=== PATIENT | male | born 1975 | race Caucasian/White ===

== ENCOUNTER 2020-01-25 22:55 | Observation (INO) | payer OTHER ==
[2020-01-26] MEDS ORDERED: Ondansetron PF 4 MG/2 ML Vial IVP PRN (01:09)
[2020-01-26] MEDS ORDERED: Ondansetron ODT 4 MG TAB SL PRN (01:09)
[2020-01-26 01:17] VITALS: BMI 19.2
[2020-01-26] MEDS: Piperacillin/Tazobactam 3.375 GM in Sodium Chloride 0.9% 100 ML IVPB SCH ×2 (01:41→08:25)
[2020-01-26] MEDS: Morphine 4 MG/ML VIAL SLOW IVP PRN ×2 (01:42→08:23)
[2020-01-26] MEDS: Sodium Chloride 0.9% 1,000 ML IV SCH ×2 (01:42→08:25)
[2020-01-26] MEDS ORDERED: Dextrose 50% Abboject 50 ML SYRINGE SLOW IVP PRN (02:11)
[2020-01-26] MEDS ORDERED: Dextrose 5% in Water 1,000 ML IV PRN (02:11)
[2020-01-26] MEDS ORDERED: HumaLOG 300 UNITS/3 ML VIAL SC PRN (02:16)
[2020-01-26] MEDS ORDERED: Insulin Glargine 15 UNITS in Pre-Filled Syringe 1 EACH SC SCH ×2 (02:45→21:00)
[2020-01-26] MEDS ORDERED: Bisacodyl 5 MG TAB PO PRN (02:53)
--- NOTE | 2020-01-26 04:39 | CON ---
DATE OF CONSULTATION: REASON FOR CONSULT: Medical management. CHIEF COMPLAINT: Rectal pain. HISTORY OF PRESENT ILLNESS: The patient is a 44-year-old male, who presented to the outside facility with two-day history of rectal pain worsening. He reports normal bowel movements. No prior history of fistula or hemorrhoids. No hematochezia or melena. No fever. He underwent a CT abdomen that showed a perirectal abscess. He was transferred here for admission to General Surgery. He also carries a diagnosis of type 1 diabetes diagnosed nine years ago, currently stable on the home regimen per the patient. REVIEW OF SYSTEMS: A 12-point review of systems was performed and the patient denied all those except for what is mentioned in HPI. PAST MEDICAL HISTORY: Type 1 diabetes. PAST SURGICAL HISTORY: None. MEDICATIONS: 1. Humalog sliding scale insulin. 2. Lantus 15 units subcu at bedtime. ALLERGIES: NONE. FAMILY HISTORY: Positive for diabetes in his grandmother and hypertension in his mom. No history of cancers. 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 He reports 3 to 4 liquor drinks with each setting and drinks on average four times a week. He denies tobacco and illicit drug use. He is not . PHYSICAL EXAMINATION: VITAL SIGNS: Temperature 98.7, pulse 94, respirations 18, O2 saturation 95% on room air, and blood pressure 168/94. GENERAL: The patient is in no acute distress. HEENT: Moist mucous membranes. No lymphadenopathy. No scleral icterus. HEART: Regular rate and rhythm. Does have a mild 3/6 systolic murmur that extending up to the left carotid. Distal pulses 2+ in bilateral lower extremities. LUNGS: Clear to auscultation bilaterally. No wheezing or increased work of breathing. ABDOMEN: Soft and nontender. Bowel sounds positive. No masses or hernias palpated. EXTREMITIES: No cyanosis or edema. NEURO: No focal deficits. SKIN: No rashes. PSYCH: Alert and oriented x3. PERTINENT LABS AND IMAGING: ABG that was done, which shows a pH of 7.4, pCO2 of 32, PaO2 of 77, and bicarb of 20.6. UA was performed and unremarkable. CBC with white blood cell count 11.7, otherwise normal. Hemoglobin 13.6, hematocrit 38.8, and platelets 324. CMP; sodium 130, potassium 4.4, bicarb 21, chloride 92, glucose 549, calcium 9.5, alkaline phosphatase 91, ALT 32, AST 30, T-bilirubin 0.7. CTA of the abdomen and pelvis showed a left perianal abscess measuring 3.7 x 2.6 x 2.2 cm and large colonic stool burden and also dysfunction in the urinary bladder as well as evidence of chronic pancreatitis with dilatation of the pancreatic duct without evidence of mass. Ductal dilation cannot be easily evaluated, they recommend MRCP. ASSESSMENT AND PLAN: 1. Perianal abscess. Management per primary team. Currently on Zosyn and n.p.o. for possible procedure tomorrow. NS at 150 per surgery recs. Morphine for pain control. Could be caused by chronic constipation. We will start him on a bowel regimen. 2. Type 1 diabetes. Continue home medications and sliding scale insulin. Initially, 549. Last sugar check was 243. 3. Heart murmur, new per patient and concern for aortic stenosis based off the exam. Echo is ordered for further evaluation. 4. Concern for alcohol abuse and will monitor ASE scores. No signs or symptoms of withdrawal or acute intoxication at this time. 5. Chronic pancreatitis suggested by a CT abdomen. They suggest magnetic resonance cholangiopancreatography, but likely this could be scheduled outpatient with acute infection. 6. Constipation with large stool burden on CT. The patient reports had a regular sized bowel movement since getting to the floor. Place on stool regimen with history and because the patient is receiving opioids for pain control. 7. Bladder Distension: patient denies dysuria, difficulty with urination. UA wnl. Plan for post void residual to evaluate for retention. Disposition, stable. Deep venous thrombosis prophylaxis. Sequential compression devices. Gastrointestinal prophylaxis, none. Thank you for the consult. We will continue to follow. Job ID: [id number] [facility]
[2020-01-26 05:24] LABS: Anion Gap 12 mmol/L (10-20); BUN (Urea Nitrogen) 4 mg/dL (8.9-20.6); Calc. Creatinine Clearance 143 mL/min (70-130); Calcium 7.9 mg/dL (7.8-10.44); Carbon Dioxide 23 mmol/L (22-29); Chloride 103 mmol/L (98-107); Estimated GFR-MDRD Greater than 90; Glucose 206 mg/dL (70-105); Potassium 3.3 mmol/L (3.5-5.1); Sodium 135 mmol/L (136-145)
[2020-01-26 05:45] LABS: Band 2 % (5-11); Eosinophils 1 % (0-10); Hemoglobin 11.6 g/dL (14.0-18.0); Lymphocytes 28 % (21-51); MDiff Complete? YES; Mean Corpuscular HGB CONC 34.1 g/dL (32.0-36.0); Mean Corpuscular Hemoglobin 33.3 pg (27.0-31.0); Mean Corpuscular Volume 97.6 fL (78.0-98.0); Mean Platelet Volume 7.5 fL (7.4-10.4); Monocytes 6 % (0-10); Neutrophil 63 % (42-75); Platelet Count 307 thou/uL (130-400); Platelet Morphology Comment Appears Adequate; RBC Distribution Width 11.6 % (11.5-14.5); RBC Morphology Normal; White Blood Cell (WBC) Count 10.9 thou/uL (4.8-10.8)
[2020-01-26] MEDS: HumaLOG 300 UNITS/3 ML VIAL SC PRN ×2 (05:54→17:08)
--- NOTE | 2020-01-26 07:44 | HP ---
CHIEF COMPLAINT: Painful mass of perirectal area. HISTORY OF PRESENT ILLNESS: This is a 44-year-old poorly-controlled diabetic male with 3-day history of perirectal abscess. It is not draining. No previous episodes. No fevers or chills. Last bowel movement was last night. PAST MEDICAL HISTORY: Diabetes. PAST SURGICAL HISTORY: None. MEDICATIONS: Insulin. ALLERGIES: NO KNOWN DRUG ALLERGIES. SOCIAL HISTORY: Single. 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 No tobacco. Social alcohol. FAMILY HISTORY: 1. Hypertension. 2. Diabetes. 3. Heart disease. PHYSICAL EXAMINATION: VITAL SIGNS: Temperature 98.6, pulse 76, blood pressure 136/74. GENERAL: Well-developed, well-nourished male, in no apparent distress. HEENT: Unremarkable. LUNGS: Clear. HEART: Regular rate and rhythm. : Perianal exam, he has a 5-cm tender fluctuant mass in the lower sacral area on the left side that extends into the gluteus. LABORATORY DATA: His white count is 10.9, H and H of 11 and 34, platelet count 307. His glucose is 206. Electrolytes otherwise okay. ASSESSMENT: Gluteal abscess. PLAN: I and D. CONSENT: I have discussed planned procedure as well as risk of bleeding, infection, injury to sphincter mechanism. He understands and gives informed consent. Job ID: [id number]
--- NOTE | 2020-01-26 08:10 | PDOC.EVN ---
Addendum - Attending - Attending Attestation Date/Time: 01/26/20 7908 I personally evaluated the patient and discussed the management with Dr. Alves. I agree with the History, Examination, Assessment and Plan documented in her consult note with any addition or exceptions noted below. Patient here for anthony-rectal abscess, admitted by General Surgery. Primary plan and pain mgmt per their recommendations. We are consulted for blood glucose control in the setting of patient described Type 1 DM. Insulin regimen not characteristic of that diagnosis. However, will continue to monitor and escalate insulin as needed. Also checking TTE for his systolic murmur. Further mgmt and dispo pending primary team and anticipate he will be stable for discharge whenever the primary team has completed their treatment plan.
[2020-01-26] MEDS: Docusate 100 MG CAP PO SCH ×2 (08:26→21:13)
[2020-01-26] MEDS ORDERED: Fentanyl 250 MCG/5 ML VIAL ONE (10:14)
[2020-01-26] MEDS ORDERED: Rocuronium Bromide 10 MG/ML (10ML VIAL) ONE (11:10)
[2020-01-26] MEDS ORDERED: Ondansetron PF 4 MG/2 ML Vial ONE (11:10)
[2020-01-26] MEDS ORDERED: Lidocaine 1% PF 5 ML VIAL ONE (11:10)
[2020-01-26] MEDS ORDERED: Glycopyrrolate 0.2 MG/ML 5 ML SYRINGE ONE (11:10)
[2020-01-26] MEDS ORDERED: PROPOFOL 200 MG/20 ML VIAL ONE (11:10)
[2020-01-26] MEDS ORDERED: Morphine 2 MG/ML SYRINGE SLOW IVP PRN (11:39)
[2020-01-26] MEDS ORDERED: HYDROcodone/Acetaminophen 7.5/325 mg Tablet PO PRN ×2 (11:39)
[2020-01-26] MEDS ORDERED: Morphine 4 MG/ML VIAL SLOW IVP PRN (11:39)
[2020-01-26] MEDS ORDERED: Ondansetron HCl/PF 4 MG/2 ML Vial IVP PRN (11:52)
[2020-01-26] MEDS ORDERED: Promethazine HCl 25 MG/ML VIAL IM PRN (11:52)
[2020-01-26] MEDS ORDERED: Promethazine HCl 25 MG/ML VIAL SLOW IVP PRN (11:52)
[2020-01-27 05:36] LABS: #Eosinphils 0.1 thou/uL (0.0-0.7); #Lymphocytes 1.1 thou/uL (1.20-3.40); #Monocytes 1.6 thou/uL (0.11-0.59); #Neutrophils 7.9 thou/uL (1.40-6.50); %Basophils 0.3 % (0.0-1.0); %Eosinophils 0.6 % (0.0-10.0); %Lymphocytes 10.6 % (21.0-51.0); %Monocytes 14.7 % (0.0-10.0); %Neutrophils 73.9 % (42.0-75.0); Hemoglobin 11.7 g/dL (14.0-18.0); Mean Corpuscular HGB CONC 33.5 g/dL (32.0-36.0); Mean Corpuscular Volume 98.5 fL (78.0-98.0); Mean Platelet Volume 7.3 fL (7.4-10.4); Platelet Count 350 thou/uL (130-400); RBC Distribution Width 11.6 % (11.5-14.5); Red Blood Cell (RBC) Count 3.54 mill/uL (4.70-6.10); White Blood Cell (WBC) Count 10.7 thou/uL (4.8-10.8)
[2020-01-27 05:50] LABS: Anion Gap 9 mmol/L (10-20); BUN (Urea Nitrogen) Less than 4 mg/dL (8.9-20.6); Calc. Creatinine Clearance 159 mL/min (70-130); Calcium 7.9 mg/dL (7.8-10.44); Carbon Dioxide 30 mmol/L (22-29); Chloride 102 mmol/L (98-107); Estimated GFR-MDRD Greater than 90; Glucose 100 mg/dL (70-105); Sodium 138 mmol/L (136-145)
[2020-01-27 05:55] LABS: Potassium 2.8 mmol/L (3.5-5.1)
--- NOTE | 2020-01-27 06:19 | OP ---
DATE OF PROCEDURE: 01/26/2020 PREOPERATIVE DIAGNOSIS: Left perirectal abscess. PROCEDURE PERFORMED: I and D of perirectal abscess. INDICATIONS: This is a 44-year-old diabetic male, who came to the emergency room with severe anal pain and swelling, found to have an abscess. FINDINGS: A 4-cm cavity in left perirectal wall extending into the gluteal region. DESCRIPTION OF PROCEDURE: After informed consent was obtained, the patient was taken to the operating room, given general endotracheal anesthesia. He was placed in the prone herman-knife position. The gluteal area was prepped and draped in usual fashion. An elliptical incision was performed releasing thick purulent fluid. This was sent for culture and sensitivity. The ellipse was excised. The cavity was dilated digitally and irrigated thoroughly with saline and then packed open with Betadine and gauze and is covered with sterile drape, sterile bandage. The patient tolerated the procedure well, transferred to Recovery in good condition. Sponge and needle count verified correct x2. Job ID: [id number]
[2020-01-27] MEDS ORDERED: Potassium Chloride 20 MEQ TAB PO SCH ×3 (06:30→17:00)
--- NOTE | 2020-01-27 07:07 | PDOC.FM ---
- Subjective Subjective: This is a consultation progress note Pt states that he is continuing to do well. He states he has been out of bed, passed a small BM, and is passing gas. He reports the kent catheter was just removed and he has not urinated yet. He denies tremors, agitation, palpitations , or hallucinations - Objective MAR Reviewed: Yes Vital Signs & Weight: Vital Signs (12 hours) Temp Pulse Resp BP Pulse Ox 01/27/20 03:25 98.4 F 79 16 114/71 99 01/26/20 23:21 98.7 F 86 14 127/74 97 01/26/20 19:28 98.8 F 88 14 123/80 95 Weight Weight 68.039 kg I&O: 01/26/20 01/27/20 01/28/20 06:59 06:59 06:59 Intake Total 750 900 Output Total 900 Balance 750 0 Result Diagrams: 01/27/20 04:50 01/27/20 04:50 Phys Exam - Physical Examination Constitutional: NAD HEENT: moist MMs Neck: no JVD, full ROM Respiratory: no wheezing, clear to auscultation bilateral Cardiovascular: RRR, no significant murmur Gastrointestinal: soft, non-tender, no distention Musculoskeletal: no edema, pulses present Neurological: normal sensation, moves all 4 limbs Psychiatric: A&O x 3 Deviation from normal: abscess is covered, dressings appear dry and intact Dx/Plan (1) Perianal abscess Code(s): K61.0 - ANAL ABSCESS Status: Acute (2) DM type 1 (diabetes mellitus, type 1) Status: Acute - Plan Plan: Perianal abscess POD 1 I&D -Management per primary team DM1 -Continue home medications -Fasting sugars are appropriate, will monitor today -Discussed wit the patient the importance of tight control of BG for wound healing New heart murmur -Pending Echocardiogram Alcohol abuse -Asymptomatic for withdraw, ASE protocol Hypokalemia -S/P oral replacement, will monitor with BMPs -Magnesium appropriate Chronic pancreatitis per CT -Likely outpt Constipation -Bowel regimen in place Bladder distension -Urology consulted, we will see how he urinates on his own today Addendum - Attending - Attending Attestation Date/Time: 01/27/201946 I personally evaluated the patient and discussed the management with Dr. Carmona I agree with the History, Examination, Assessment and Plan documented above with any addition or exceptions noted below- Patient without complaints. Afebrile VSS A/P: 1) Perirectal abscess- s/p I&D- plans as per surgery; stable for discharge. 2) Type 1 DM- BG improved; continue current abx. 3) Urinary retention- voiding trial today. D/c home if able to void.
[2020-01-27] MEDS: Docusate 100 MG CAP PO SCH (07:49)
--- NOTE | 2020-01-27 08:52 | CON ---
DATE OF CONSULTATION: 01/26/2020 REASON FOR CONSULTATION: Urinary retention. HISTORY OF PRESENT ILLNESS: This is a 44-year-old male with diabetes, currently admitted with gluteal abscess. He had not voided throughout the entire morning with a postvoid residual above 500 just prior to being taken down for surgery earlier today. The catheter was placed at the beginning of his procedure, and I was consulted to manage the catheter and urinary retention. In speaking with him now, he has no prior history of urinary symptoms, urinary tract infections, retention, urologic surgery. He has never seen a urologist. No history of gross hematuria. He currently reports that the catheter is not bothering him. Denies suprapubic pain, flank pain, nausea, or vomiting. He denies fevers or chills. PAST MEDICAL HISTORY: Diabetes. PAST SURGICAL HISTORY: None. MEDICATIONS: Insulin. ALLERGIES: NO KNOWN DRUG ALLERGIES. SOCIAL HISTORY: Single. No substance abuse. FAMILY HISTORY: Reviewed. Negative for urologic malignancy. REVIEW OF SYSTEMS: Ten-point review of systems performed, negative except as mentioned in my HPI. PHYSICAL EXAMINATION: VITAL SIGNS: Afebrile, vitals stable. Urine output has not been recorded. GENERAL: No acute distress, conversant. HEAD: Normocephalic and atraumatic. Eyes; extraocular movements intact. Sclerae nonicteric. NECK: Supple. Trachea midline. LUNGS: Breathing unlabored. Symmetric chest expansion. HEART: Regular rate and rhythm. ABDOMEN: Soft, nontender, nondistended. No suprapubic tenderness. No flank tenderness. : Normal phallus and testicles with Zhang catheter in good position. Draining clear urine. EXTREMITIES: Without clubbing, cyanosis, or edema. SKIN: Warm and dry. NEUROLOGIC: Alert and oriented x3. PSYCHIATRIC: Normal mood and affect. LABORATORY DATA: Reviewed. White count 10.9. Creatinine 0.62. ASSESSMENT AND PLAN: Urinary retention. Zhang catheter will remain overnight with removal first thing in the morning. We will check postvoid residuals to ensure he is voiding well. If he is able to void after surgery, I will see him 1 to 2 weeks later to ensure that he continues to empty well. 60 minutes spent in patient's care. Job ID: [id number]
[2020-01-27] MEDS ORDERED: Tamsulosin HCl 0.4 MG CAP PO SCH (09:00)
[2020-01-27 11:28] VITALS: BP 117/75; TEMP 97.6
[2020-01-27] MEDS: HumaLOG 300 UNITS/3 ML VIAL SC PRN (12:06)
--- NOTE | 2020-01-27 17:12 | EKG ---
Test Reason : Blood Pressure : / mmHG Vent. Rate : 081 BPM Atrial Rate : 081 BPM P-R Int : 154 ms QRS Dur : 092 ms QT Int : 416 ms P-R-T Axes : 048 018 040 degrees QTc Int : 483 ms Normal sinus rhythm Prolonged QT Abnormal ECG Confirmed by CORRINE BAJWA ([id number]) on 01/27/2020 5:12:23 PM Referred By: SUKHDEV Confirmed By:CORRINE BAJWA
--- NOTE | 2020-01-28 05:31 | DIS ---
DATE OF ADMISSION: 01/26/2020 DATE OF DISCHARGE: 01/27/2020 DISCHARGE DIAGNOSES: 1. Perirectal abscess. 2. Poorly-controlled diabetes mellitus. 3. Urinary retention. HOSPITAL COURSE: The patient was admitted, given IV antibiotics, taken to the operating room where he underwent drainage of perirectal abscess. Preoperatively, he had overdistended bladder with over a liter of fluid. A Zhang was placed as he could not urinate. He underwent an I and D of this perirectal abscess, and then Urology was consulted. He was started on Flomax. He is doing better now. He was discharged to home. Blood sugars are better. He was discharged on doxycycline, tamsulosin, Zofran, and [place]. He will follow up with me in 2 weeks. He will do sitz baths regularly. Job ID: [id number]
== END 2020-01-27 15:00 | disposition home or self-care (01) ==
LOC: ERS 22:55 → SURG A 01-26 00:03
PROVIDERS: ADMIT Surgery; ATTEND Surgery
PROC: 0D9P3ZZ Drainage of Rectum, Percutaneous Approach (ICD-10-PCS; principal; 2020-01-26)
DX: K61.1 Rectal abscess (principal); E10.65 Type 1 diabetes mellitus with hyperglycemia; N32.89 Other specified disorders of bladder; R33.9 Retention of urine, unspecified; R01.1 Cardiac murmur, unspecified; K59.00 Constipation, unspecified; F10.10 Alcohol abuse, uncomplicated; E87.6 Hypokalemia; K86.1 Other chronic pancreatitis; Z79.2 Long term (current) use of antibiotics; Z79.899 Other long term (current) drug therapy
CPT/HCPCS: 36415; 36416; 51798; 80048; 83735; 85025; 87070; 87076; 87077; 87205; 93005; 93010; 93306; 96361; 96374; 96375; 96376; 99285; G0378; J1815; J2001; J2270; J2405; J2543; J2704; J3010; J3490